=== PATIENT | male | born 1940 | race Caucasian/White ===

== ENCOUNTER 2018-10-26 10:14 | Inpatient (IN) | payer OTHER ==
[~2018-10-26] VITALS: Ht 180.3 cm; Wt 97.5 kg
--- NOTE | 2018-10-26 10:14 | NUR ---
PATIENT BIBA TO BED 9 AT THIS TIME.
[2018-10-26 10:18] VITALS: BP 134/70
--- NOTE | 2018-10-26 10:20 | NUR ---
BIBA. 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 PT STS "I FELT LIKE I WAS GONNA PASS OUT." PT AAOX4, BREATHING EVEN AND UNLABORED, SOB RESOLVED NOW. BILATERAL EQUAL AND CLEAR LUNG SOUNDS UPON AUSCULTATION. PT DENIES PAIN. BS122. EQUAL BILATERAL MUSCLE STRENGTH TO UPPER AND LOWER EXTREMITIES. PT PLACED ON MOTOR GRADER OPERATOR, EKG DONE. HOB UP, BED RAILS UP X1, ON LOW BED POSITION, LOCKED. ER MD AWARE OF PT STATUS. WILL CONTINUE TO MONITOR.
--- NOTE | 2018-10-26 10:30 | NUR ---
Patient being evaluated by physician at bedside.
--- NOTE | 2018-10-26 10:40 | NUR ---
RADIOLOGY AT BEDSIDE
--- NOTE | 2018-10-26 10:50 | NUR ---
PT TAKEN VIA BED TO CT
[2018-10-26 11:08] LABS: BASOPHILS # (AUTO) 0.1 K/uL (0.00-0.22); BASOPHILS % (AUTO) 0.8 % (0.0-2.0); EOSINOPHILS # (AUTO) 0.2 K/uL (0-0.4); EOSINOPHILS % (AUTO) 3.4 % (0.0-4.0); HEMATOCRIT 43.2 % (36-52); HEMOGLOBIN 14.9 g/dL (12.0-18.0); LYMPHOCYTES # (AUTO) 2.1 K/uL (2.0-11.5); LYMPHOCYTES % (AUTO) 30.3 % (20.5-51.1); MEAN CORPUSCULAR HEMOGLOBIN 30 pg (27-31); MEAN CORPUSCULAR HGB CONC 35 g/dL (33-37); MEAN CORPUSCULAR VOLUME 87.8 fL (80-94); MONOCYTES # (AUTO) 0.6 K/uL (0.8-1.0); MONOCYTES % (AUTO) 8.1 % (1.7-9.3); NEUTROPHILS # (AUTO) 3.9 K/uL (1.8-7.7); NEUTROPHILS % (AUTO) 57.4 % (42.2-75.2); PLATELET COUNT (AUTO) 196 K/uL (140-450); RED BLOOD CELL COUNT(AUTO) 4.93 MIL/uL (4.20-6.10); RED CELL DISTRIBUTION WIDTH 13.4 % (11.6-13.7); WHITE BLOOD COUNT (AUTO) 6.8 K/uL (4.8-10.8)
--- NOTE | 2018-10-26 11:08 | NUR ---
PT TAKEN BACK BY BED BY CARTON MAKING MACHINE OPERATOR
[2018-10-26 12:18] LABS: ANION GAP 18.9 (8-16); CARBON DIOXIDE 21.9 mmol/L (21-32); CHLORIDE 102 mmol/L (98-107); CREATININE 1.2 mg/dL (0.7-1.3); GLUCOSE 115 mg/dL (74-106); POTASSIUM 3.8 mmol/L (3.5-5.1); SODIUM SERUM 139 mmol/L (136-145); UREA NITROGEN, BLOOD 14 mg/dL (7-18)
[2018-10-26 12:25] LABS: ALBUMIN 3.9 g/dL (3.4-5.0); ASPARTATE AMINOTRANSFERASE 25 U/L (15-37); TOTAL BILIRUBIN 0.5 mg/dL (0.0-1.0)
--- NOTE | 2018-10-26 12:30 | NUR ---
PT IS ON BED, COMFORTABLE. AAOX4. ABLE TO VERBALIZE NEEDS. NO COMPLAINTS OF GENERALIZED WEAKNESS, NO DIZZINESS AT THIS TIME. PT IS SINUS CONNIE.
--- NOTE | 2018-10-26 13:35 | NUR ---
PT RESTING QUIETLY. STS "I'M FEELING A LITTLE BIT BETTER." "DIZZINESS COMES AND GOES." REMAINS SB ON MONITOR. BREATHING EVEN AND UNLABORED. AWAITING DISPOSTION.
[2018-10-26 13:41] LABS: APPEARANCE,URINE CLEAR (CLEAR); BILIRUBIN,URINE NEGATIVE (NEGATIVE); BLOOD, URINE NEGATIVE (NEGATIVE); COLOR,URINE YELLOW (YELLOW); LEUKOCYTE ESTERASE ,URINE NEGATIVE (NEGATIVE); NITRITE, URINE NEGATIVE (NEGATIVE); PH,URINE 7.5 (5.0-9.0); UGLUCOSE NEGATIVE (NEGATIVE)
[2018-10-26] MEDS ORDERED: ASPIRIN 81 MG TAB.CHEW PO ONE (14:00)
--- NOTE | 2018-10-26 14:02 | NUR ---
PT COMPLAINED OF DIFFICULTY SWALLOWING. NO SOB NOTED. ER MD AWARE OF PT STATUS.
--- NOTE | 2018-10-26 14:03 | NUR ---
PT IS ON BED, COMFORTABLE. PT AA&O X4. DENIES DIZZINESS. DENIES GENERALIZED WEAKNESS. NO SOB NOTED. SINUS CONNIE. WILL CONTINUE TO MONITOR.
--- NOTE | 2018-10-26 14:15 | NUR ---
MD AT BEDSIDE TO EVALUATE PT FOR C/O DIFFICULTY SWALLOWING
[2018-10-26] MEDS ORDERED: NACL 0.9% 1,000 ML IV SCH (14:48)
[2018-10-26] MEDS ORDERED: ACETAMINOPHEN 325 MG TAB PO PRN (14:50)
[2018-10-26] MEDS ORDERED: DOCUSATE SODIUM 100 MG GELCAP PO PRN (14:50)
[2018-10-26] MEDS ORDERED: ONDANSETRON 4 MG/2 ML VIAL IM/IVP PRN (14:50)
[2018-10-26] MEDS ORDERED: MECLIZINE 25 MG TAB PO PRN (15:40)
[2018-10-26] MEDS ORDERED: ALBUTEROL SULFATE/IPRATROPIU 3 ML SOL IH PRN (15:40)
[2018-10-26 15:41] LABS: BARBITURATE, URINE NEG. ng/ml (NEG <=200); BENZODIAZEPINE, URINE NEG. ng/mL (NEG <=200); CANNABINOID, URINE POS. ng/mL (NEG <=50); COCAINE, URINE NEG. ng/mL (NEG <=300); OPIATE, URINE NEG. ng/mL (NEG <=2000); PHENCYCLIDINE SCREEN,URINE NEG. ng/mL (NEG <=25)
--- NOTE | 2018-10-26 15:44 | NUR ---
PT AMBULATED TO RESTROOM AND BACK TO [facility] WITH STEADY GAIT AND WITHOUT INCIDENT.
[2018-10-26 15:50] LABS: MAGNESIUM 2.1 mg/dL (1.8-2.4); THYROID STIMULATING HORMONE 2.11 uIU/mL (0.34-3.74)
--- NOTE | 2018-10-26 16:04 | NUR ---
Patient will be admitted to care of Dr. Wright. Admited to Tele Will go to room 123 A.. Belongings list completed. Report to GENE Sanchez.
[2018-10-26] MEDS ORDERED: LIDOCAINE VISCOUS 2% 20 ML UDC PO SCH (16:05)
[2018-10-26] MEDS ORDERED: DICYCLOMINE HCL LIQUID 10 MG/5 ML UDC PO SCH (16:05)
[2018-10-26] MEDS ORDERED: ALUMINUM HYD/MAG/SIMETHICONE 30 ML UDC PO SCH (16:05)
[2018-10-26] MEDS ORDERED: DEXTROSE 50% 50 ML SYR IVP PRN (16:15)
[2018-10-26] MEDS ORDERED: INSULIN LISPRO SLIDING SCALE 100 UNITS/ML VIAL SUBQ PRN (16:15)
[2018-10-26] MEDS: BLOOD GLUCOSE MONITORING 1 DEV DEV FS SCH ×2 (16:30→20:39)
--- NOTE | 2018-10-26 16:30 | NUR ---
RECEIVED REPORT FROM ER NURSE AT BEDSIDE. PT LYING ON BED COMFORTABLY. VS STABLE NO SIGN . BP 140/67, O2 SAT 98% ON RA. NO SIGN OF DISTRESS NOTED. IVF INFUSING AT 60 ML/HR, NS. FAMILY AT THE BEDSIDE. INFORMED PT THAT WILL DO ADMISSION Q&A N. PT OKAY. PT IS ON CCHO 60 GM DIET. CALL LIGHT WITHIN REACH. WILL CONTINUE TO MONITOR PT.
[2018-10-26] MEDS ORDERED: ATEN25TA7 PO (16:58)
[2018-10-26] MEDS ORDERED: SIMV40TA1 PO (16:58)
[2018-10-26] MEDS ORDERED: METF500T2 PO (16:58)
[2018-10-26] MEDS ORDERED: APIX5TAB PO (16:58)
[2018-10-26] MEDS ORDERED: DIT5 PO (16:58)
[2018-10-26] MEDS ORDERED: FURO-572 PO (16:58)
--- NOTE | 2018-10-26 17:00 | NUR ---
PT COMPLAINING OF THE HEAVINESS OF THE CHEST , HAS JAW PAIN. PT APPEARS IN DISTRESS. APPLIED O2 VIA NC TO THE PATIENT. BP 199/117. PT FEELS COMFORTABLE AFTER APPLICATION OF THE O2 VIA NC 2LPM. WILL CONTINUE TO ASSESS PT.
--- NOTE | 2018-10-26 17:15 | NUR ---
PT COMPLAIN OF THE CHEST PAIN AGAIN. MD UPA NOTIFIED. BP ELEVATED. PT APPEARS TO BE IN DISTRESS AT THIS TIME. PT ASKING FOR THE CRIMINAL COURT JUDGE TO BE SEEN RT NOW. TALKING TO THE FAMILY. MD TO INPUT NITRO GLYCERINE FOR CHEST PAIN. WILL CONTINUE TO MONITOR PT.
[2018-10-26] MEDS ORDERED: LOSA100T1 PO (17:31)
[2018-10-26] MEDS ORDERED: NITROGLYCERIN 0.4 MG TAB SL PRN (17:45)
[2018-10-26] MEDS ORDERED: ENALAPRILAT 2.5 MG/2 ML VIAL IVP SCH (17:45)
--- NOTE | 2018-10-26 18:22 | NUR ---
NITRO GLYCERINE PATCH PLACED ON THE LEFT SIDE OF THE CHEST AT 1822. TO TAKE OFF THE NITRO PATCH AT 0622 AM IN THE MORNING. VS NOTED BP 152/76, HR 58, O2 99% ON 4 LPM. PT IS STABLE. PT APPEARS RELAXED AT THIS TIME. FAMILY AT THE BEDSIDE. DENIES PAIN AT THIS TIME. NO HEAVINESS. PT ALSO PROVIDED WITH 0.4 SL NITRO. WILL CONTINUE TO MONITOR PT.
[2018-10-26] MEDS ORDERED: LORazepam 1 MG TAB PO SCH (18:30)
[2018-10-26] MEDS ORDERED: NITROGLYCERIN 0.2 MG/HR PATCH TD SCH (18:30)
--- NOTE | 2018-10-26 18:32 | NUR ---
PT ADMINISTERED WITH ATIVAN. APPEARS RELAXED AT THIS TIME. WILL CONTINUE TO MONITOR PT.
--- NOTE | 2018-10-26 19:10 | NUR ---
ENDORSED PT TO PM NURSE AT BEDSIDE. PT IN STABLE CONDITION. PT DENIES ANY PAIN. VS STABLE AT THIS TIME. MRSA SWAB COLLECTED AND TO BE SENT TO LAB.
--- NOTE | 2018-10-26 19:11 | NUR ---
REPORT RECEIVED FROM AM NURSE AT BEDSIDE. PT IN STABLE CONDITION. AAOX4. INTRODUCED SELF TO PT. BOARD UPDATED. NO COMPLAINTS OF PAIN. NO SOB. AFEBRILE. IV SITE R HAND 20G RUNNING NS@20ML/HR PATENT AND INTACT. SKIN WARM, DRY, AND INTACT WITH NO OPEN WOUNDS. BED LOCKED IN LOW POSITION. CALL TOURE WITHIN REACH. SAFETY PRECAUTIONS IN PLACE. ALL NEEDS MET AT THIS TIME. WILL CONTINUE TO MONITOR. Addendum: 10/26/18 at 1945 by Maikol Luque RN 3L O2 VIA NC. Addendum: 10/26/18 at 1945 by Maikol Luque RN NITROPATCH APPLIED TO L UPPER CHEST@1818. INSTRUCTED TO REMOVE AT 0618 ON 10/27.
--- NOTE | 2018-10-26 19:24 | NUR ---
RECEIVED PATIENT ON 4L NASAL CANNULA, PULSE OX SAT 97%. FAMILY AT BEDSIDE. BREATH SOUNDS CLEAR. PATIENT DENIES SOB. PATIENT DENIES COUGH/SPUTUM PRODUCTION. NO HHN INDICATED AT THIS TIME. NO RESPIRATORY DISTRESS NOTED AT THIS TIME. TITRATED OXYGEN TO 3L NC, PULSE OX SAT REMAINS 97%. WILL CONTINUE TO MONITOR AND TITRATE 02 TO MAINTAIN ADEQUATE OXYGENATION.
--- NOTE | 2018-10-26 19:29 | NUR ---
ADMINISTERED ROCEPHIN TO PT. TOLERATED WELL.
[2018-10-26] MEDS ORDERED: cefTRIAXone 1,000 MG VIAL ONE (19:31)
[2018-10-26 20:00] VITALS: BP 139/72
[2018-10-26] MEDS: OXYBUTYNIN 5 MG TAB PO SCH (20:31)
--- NOTE | 2018-10-26 20:31 | NUR ---
ZOCOR, ELIQUIS, AND DITROPAN GIVEN PO. PT TOLERATED WELL. BS 116. NO INSULIN COVERAGE NEEDED.
[2018-10-26] MEDS: APIXABAN 2.5 MG TAB PO SCH (20:34)
[2018-10-26] MEDS ORDERED: SIMVASTATIN 40 MG TAB PO SCH (21:00)
[2018-10-26] MEDS ORDERED: NON-FORMULARY ITEM (Metformin HCl* (Glucophage Xr*) 1 TAB) PO SCH (21:00)
[2018-10-26] MEDS ORDERED: LOSARTAN POTASSIUM PO SCH (21:00)
[2018-10-26] MEDS ORDERED: ASPIRIN 81 MG TAB.CHEW PO SCH (21:00)
[2018-10-26] MEDS ORDERED: NON-FORMULARY ITEM (Apixaban (Eliquis) 5 MG) PO SCH (21:00)
--- NOTE | 2018-10-26 22:15 | NUR ---
PT IN SLEEPING IN BED BUT AROUSABLE. NO S/S OF DISTRESS NOTED. WILL CONTINUE TO MONITOR.
[2018-10-27] VITALS: BP 122/70
--- NOTE | 2018-10-27 00:25 | NUR ---
PT AWAKE AND ALERT GOT UP TO USE THE RESTROOM. NO S/S OF DISTRESS NOTED. MENTAL STATUS MUCH IMPROVED. WILL CONTINUE TO MONITOR.
--- NOTE | 2018-10-27 01:30 | NUR ---
PT SLEEPING COMFORTABLY BUT AROUSABLE. NO S/S OF DISTRESS NOTED. BREATHING EVEN, UNLABORED, AND WNL. WILL CONTINUE TO MONITOR.
[2018-10-27 04:00] VITALS: BP 100/48
--- NOTE | 2018-10-27 04:15 | NUR ---
PT SLEEPING COMFORTABLY BUT AROUSABLE. VS STABLE. NO S/S OF DISTRESS NOTED. NO COMPLAINTS OF PAIN. NO SOB. AFEBRILE. WILL CONTINUE TO MONITOR.
[2018-10-27] MEDS: BLOOD GLUCOSE MONITORING 1 DEV DEV FS SCH ×2 (05:16→11:30)
--- NOTE | 2018-10-27 05:16 | NUR ---
BS 116. NO INSULIN COVERAGE NEEDED.
--- NOTE | 2018-10-27 06:18 | NUR ---
NITROPATCH REMOVED FROM CHEST.
[2018-10-27 06:57] LABS: BASOPHILS # (AUTO) 0.1 K/uL (0.00-0.22); BASOPHILS % (AUTO) 0.9 % (0.0-2.0); EOSINOPHILS # (AUTO) 0.2 K/uL (0-0.4); HEMATOCRIT 41.2 % (36-52); HEMOGLOBIN 13.9 g/dL (12.0-18.0); LYMPHOCYTES # (AUTO) 1.7 K/uL (2.0-11.5); LYMPHOCYTES % (AUTO) 29.9 % (20.5-51.1); MEAN CORPUSCULAR HEMOGLOBIN 30 pg (27-31); MEAN CORPUSCULAR HGB CONC 34 g/dL (33-37); MEAN CORPUSCULAR VOLUME 89.6 fL (80-94); MONOCYTES # (AUTO) 0.4 K/uL (0.8-1.0); MONOCYTES % (AUTO) 7.6 % (1.7-9.3); NEUTROPHILS # (AUTO) 3.4 K/uL (1.8-7.7); NEUTROPHILS % (AUTO) 57.6 % (42.2-75.2); PLATELET COUNT (AUTO) 176 K/uL (140-450); RED BLOOD CELL COUNT(AUTO) 4.59 MIL/uL (4.20-6.10); WHITE BLOOD COUNT (AUTO) 5.8 K/uL (4.8-10.8)
[2018-10-27 07:18] LABS: MAGNESIUM 2.2 mg/dL (1.8-2.4); PHOSPHORUS 4.1 mg/dL (2.5-4.9)
--- NOTE | 2018-10-27 07:35 | NUR ---
RECEIVED PT FROM OPHTHALMIC MEDICAL TECHNICIAN NURSEMANNY, PT IS AWAKE AND LYING ON THE BED WITH SIDE RAILS UP AND CALL LIGHT WITHIN REACH, FALL PRECAUTION ENFORCED, BED ALARM ACTIVATED. PT HAS AN LINE ON THE RT HAND G, 22 WITH NS AT 20ML/HR INFUSING. PT DENIES ANY CHEST PAIN AND NO SOB NOTED. WILL MONITOR PT.
[2018-10-27 08:00] VITALS: BP 126/64
[2018-10-27] MEDS ORDERED: metFORMIN 500 MG TAB PO SCH ×2 (08:00→17:00)
--- NOTE | 2018-10-27 08:00 | NUR ---
PT IS AWAKE AND SEATED ON THE BED V/S TAKEN AND BP IS 126/64, PULSE IS 67, TEMP. IS 98.4, O2 SATURATION IS 96% AND RESPIARTION IS TA 128/MIN AND EVEN. NO SIGN OF DISTRESS NOTED AND WILL MONITOR PT.
[2018-10-27 08:18] LABS: CHOL/HDL RATIO 3.8 (1-4.5)
[2018-10-27 08:39] LABS: ANION GAP 16.3 (8-16); CARBON DIOXIDE 24.8 mmol/L (21-32); CHLORIDE 105 mmol/L (98-107); GLUCOSE 125 mg/dL (74-106); POTASSIUM 4.1 mmol/L (3.5-5.1); SODIUM SERUM 142 mmol/L (136-145); UREA NITROGEN, BLOOD 14 mg/dL (7-18)
[2018-10-27] MEDS ORDERED: LORATADINE 10 MG TAB PO SCH (09:00)
[2018-10-27] MEDS ORDERED: ASPIRIN 81 MG TAB.CHEW PO SCH (09:00)
[2018-10-27] MEDS ORDERED: FAMOTIDINE 20 MG TAB PO SCH (09:00)
[2018-10-27] MEDS: APIXABAN 2.5 MG TAB PO SCH (09:20)
[2018-10-27] MEDS: OXYBUTYNIN 5 MG TAB PO SCH (09:22)
--- NOTE | 2018-10-27 09:50 | NUR ---
SON CAME TO THE PT'S ROOM AND SPOKE TO RNYASMANY AND INFORMED THAT PT WILL LEAVE AMA, AND WILL TRANSFER PT TO [facility].
--- NOTE | 2018-10-27 10:01 | NUR ---
PATIENT HAS BEEN SCREENED AND CATEGORIZED HIGH NUTRITION RISK. PATIENT WILL BE SEEN WITHIN 1-2 DAYS OF ADMISSION. 10/27/18-10/28/[address]
[2018-10-27] MEDS ORDERED: METF500T2 PO (10:05)
--- NOTE | 2018-10-27 10:20 | NUR ---
DR. ORANTES TALKING TO SON OF PT NOW.
--- NOTE | 2018-10-27 11:05 | NUR ---
PT LEFT AMA WITH THE SON, SON VERBALIZED THAT HE WANTED TO TRANSFER HIS DAD TO [facility] SINCE THE PT WAS PREVIOUSLY TREATED THERE AND THAT THEY ARE NOT SATISFIED WITH HOW THE CARE WAS GIVEN TO THE PT YESTERDAY. PT AND SON WAS ASKED FOR THE REASON FOR LEAVING AMA AND DR. ORANTES WAS INFORMED AND SPOKE TO THE PT AND SON. IV LINE AND ARM BAND REMOVED, PT DENIES PAIN AT THIS TIME.
--- NOTE | 2018-10-27 11:07 | NUR ---
S.T. BEDSIDE SWALLOW EVAL COMPLETED Pt presents with adequate oropharyngeal swallow function. Pt did not want to take p.o. trials of solids due to transfer orders for [facility] and overall indifference towards order for bedside swallow eval. Pt was observed taking p.o. trials of pudding and water only. No overt s/s aspiration. Pt has been tolerating regular textures on meal trays during LOS. Recommend continue diet as tolerated. Pt educated towards favoring softer foods over solid foods due to his reported history of choking on food. No further tx indicated at this time. [facility]. TIME [id number]
[2018-10-27] MEDS ORDERED: LOSARTAN 25 MG TAB PO SCH (21:00)
--- NOTE | 2018-10-28 11:30 | NUR ---
RECEIVED CALL FROM DEDE AT [facility] INQUIRING PATIENT STATUS. INFORMED HER THAT PATIENT LEFT AMA YESTERDAY WITH THE SON WHO INTENDED TO TAKE PATIENT TO [facility]. DEDE REQUESTED DC SUMMARY AND ANY PROGRESS NOTES BE FAXED TO [phone].
== END 2018-10-27 11:05 | disposition left against medical advice (07) | DRG 73 ==
LOC: MED 10:14 → UNDOADMIN 14:48 → MTU 14:48
PROVIDERS: ADMIT Family Medicine; ATTEND Family Medicine
DX: G90.8 Other disorders of autonomic nervous system (principal); I21.A1 Myocardial infarction type 2; E66.9 Obesity, unspecified; H70.92 Unspecified mastoiditis, left ear; Z53.21 Procedure and treatment not carried out due to patient leaving prior to being seen by health care provider; I48.91 Unspecified atrial fibrillation; E78.5 Hyperlipidemia, unspecified; I10 Essential (primary) hypertension; M19.90 Unspecified osteoarthritis, unspecified site; R32 Unspecified urinary incontinence; E11.51 Type 2 diabetes mellitus with diabetic peripheral angiopathy without gangrene; Z68.30 Body mass index [BMI] 30.0-30.9, adult; Z71.3 Dietary counseling and surveillance; Z88.5 Allergy status to narcotic agent; Z85.46 Personal history of malignant neoplasm of prostate; I25.2 Old myocardial infarction; Z92.21 Personal history of antineoplastic chemotherapy; Z98.42 Cataract extraction status, left eye; Z98.41 Cataract extraction status, right eye; Z95.5 Presence of coronary angioplasty implant and graft; Z79.01 Long term (current) use of anticoagulants; Z87.891 Personal history of nicotine dependence; Z79.84 Long term (current) use of oral hypoglycemic drugs; J06.9 Acute upper respiratory infection, unspecified
CPT/HCPCS: 36415; 70450; 71045; 80048; 80053; 80305; 81003; 82948; 83036; 83690; 83735; 83880; 84100; 84134; 84443; 84484; 85025; 85610; 85730; 87081; 87804; 92610; 93005; 93880; 97116; 99285; J0696; J1815; J7060; Q0092